=== PATIENT | female | born 1955 | race African-American/Black ===

== ENCOUNTER → 2018-02-27 | Outpatient (REF) | payer BC ==
[~2018-02-27] MED LIST: ADLT ASA LOW81 MG PO; ASPIRIN LOW DOS81 MG PO; BENAZEPRIL10 M1 PO; CEPHALEXIN500 MG PO; LORTAB 7.5 OR; MAXIDE1 COMBO OR; MAXZIDE-2537.5 MG/TA PO; METFORMIN1000 MG PO; MULT VITAMIN PO; NIFEDIPINE ER90 M1 PO; NIFEDIPINE PO; OMEPRAZOLE20 MG PO; PRAVASTATIN40 MG PO; ROBITUSSIN AC10 ML PO
== END | disposition home or self-care (01) | DRG 556 ==
LOC: DI 07:11
PROVIDERS: ATTEND Orthopaedic Surgery
DX: M25.562 Pain in left knee (principal); M25.561 Pain in right knee

== ENCOUNTER 2021-08-19 11:54 | Emergency (ER) | payer MEDICARE ==
[2021-08-19] VITALS (18 sets, daily range): BP systolic 144–229; BP diastolic 80–121
[~2021-08-19] VITALS: Ht 165.1 cm; Wt 91.0 kg
== END 2021-08-19 15:27 | disposition home or self-care (01) ==
LOC: ED 11:54
DX: I10 Essential (primary) hypertension (principal); M25.562 Pain in left knee; E11.9 Type 2 diabetes mellitus without complications; W01.0XXA Fall on same level from slipping, tripping and stumbling without subsequent striking against object, initial encounter; Y92.29 Other specified public building as the place of occurrence of the external cause; Z79.84 Long term (current) use of oral hypoglycemic drugs